=== PATIENT | female | born 1990 | race African-American/Black ===

== ENCOUNTER 2022-02-18 10:32 | Emergency (ER) | payer OTHER ==
[~2022-02-18] VITALS: Ht 167.6 cm; Wt 75.9 kg
[2022-02-18] MEDS ORDERED: HYDR30OI13 TP ×2 (13:02→13:21)
[2022-02-18] MEDS ORDERED: DIPH25CA85 PO (13:02)
[2022-02-18] MEDS ORDERED: DIPH25 PO (13:22)
[2022-02-18 13:30] VITALS: BP 117/71
== END 2022-02-18 13:39 | disposition home or self-care (01) ==
LOC: EMS 10:39
DX: R21 Rash and other nonspecific skin eruption (principal)
CPT/HCPCS: 99281; Z7502

== ENCOUNTER 2023-07-21 06:20 | Emergency (ER) | payer OTHER ==
[~2023-07-21] VITALS: Ht 167.6 cm; Wt 75.0 kg
[~2023-07-21 06:20] MED LIST: DIPH-1243 PO; HYDR30OI13 TP
[2023-07-21] MEDS ORDERED: DiphenhydrAMINE HCL 50 MG/ML VIAL IVP ONE (07:00)
[2023-07-21] MEDS ORDERED: SODIUM CHLORIDE 0.9% 1,000 ML IV ONE (07:00)
[2023-07-21] MEDS ORDERED: MethylPREDNISolone SOD SUCC 125 MG/2 ML VIAL IVP ONE (07:00)
[2023-07-21] MEDS ORDERED: FAMOTIDINE 20 MG/2 ML VIAL IVP ONE (07:00)
[2023-07-21 09:06] VITALS: TEMP 98.8
[2023-07-21] MEDS ORDERED: DIPH25CA85 PO (09:08)
[2023-07-21] MEDS ORDERED: PRED-554 PO (09:08)
[2023-07-21 09:10] VITALS: BP 119/77; PULSE 80; RESP 16
== END 2023-07-21 09:33 | disposition home or self-care (01) ==
LOC: EMS 06:21
DX: T78.40XA Allergy, unspecified, initial encounter (principal); X58.XXXA Exposure to other specified factors, initial encounter
CPT/HCPCS: 99284; 96374; 96375; 96361; J1200; J3490; J2930; J7030